=== PATIENT | male | born 1990 | race African-American/Black ===

== ENCOUNTER 2017-05-08 23:36 | Emergency (ER) | payer MEDICAID ==
[~2017-05-08] VITALS: Ht 177.8 cm; Wt 87.5 kg
[2017-05-09 02:39] LABS: GLUCOSE,POINT OF CARE 75 MG/DL (70-110)
[2017-05-09 05:19] VITALS: BP 142/89
== END 2017-05-09 05:21 | disposition home or self-care (01) ==
LOC: EMS 23:37
DX: S09.93XA Unspecified injury of face, initial encounter (principal); K21.9 Gastro-esophageal reflux disease without esophagitis; F12.90 Cannabis use, unspecified, uncomplicated; W18.01XA Striking against sports equipment with subsequent fall, initial encounter; Y93.67 Activity, basketball; Y92.89 Other specified places as the place of occurrence of the external cause; Y99.8 Other external cause status
CPT/HCPCS: 70450; 70486; 82962; 99284

== ENCOUNTER 2017-07-09 11:09 | Inpatient (IN) | payer MEDICAID ==
[~2017-07-09] VITALS: Ht 177.8 cm; Wt 75.5 kg
[2017-07-09] MEDS ORDERED: CEFTAROLINE 600 MG/D5W 250 ML IV ONE (12:15)
[2017-07-09] MEDS ORDERED: OxyCODONE HCL/ACETAMINOPHEN 5-325 MG TABLET PO ONE (12:30)
[2017-07-09 13:21] LABS: BASOPHILS % (AUTO) 0.2 % (0.0-2.0); EOSINOPHILS % (AUTO) 5.9 % (1.0-6.0); HEMATOCRIT 44.8 % (41-53); HEMOGLOBIN 15.3 g/dL (13.5-17.5); LYMPHOCYTES # (AUTO) 1.7 K/uL (1.0-4.8); LYMPHOCYTES % (AUTO) 20.7 % (22.0-44.0); MEAN CORPUSCULAR HEMOGLOBIN 31.4 pg (26.0-34.0); MEAN CORPUSCULAR HGB CONC 34.1 G/dL (31.0-37.0); MEAN CORPUSCULAR VOLUME 92 fL (80-100); MONOCYTES # (AUTO) 0.9 K/uL (0.1-1.0); NEUTROPHILS # (AUTO) 5.2 K/uL (1.8-7.7); NEUTROPHILS % (AUTO) 62.2 % (40.0-70.0); PLATELET COUNT (AUTO) 244 K/uL (150-450); RED BLOOD CELL COUNT(AUTO) 4.87 MIL/uL (4.50-5.90); RED CELL DISTRIBUTION WIDTH 13.2 % (11.5-14.5)
[2017-07-09 13:38] LABS: ANION GAP 6 mmol/L (8-16); CALCIUM, TOTAL 9.3 mg/dL (8.8-10.5); CARBON DIOXIDE 31 mmol/L (22-29); CHLORIDE 102 mmol/L (98-107); CREATININE 0.91 mg/dL (0.60-1.30); GLOMERULAR FILTR. RATE CALC > 60 mL/min (>60); GLUCOSE,RANDOM 88 mg/dL (70-110); POTASSIUM 4.5 mmol/L (3.5-5.1); SODIUM SERUM 139 mmol/L (136-145); UREA NITROGEN, BLOOD 9 mg/dL (7-18)
[2017-07-09 13:43] LABS: ALANINE AMINOTRANSFERASE 516 U/L (12-78); ALKALINE PHOSPHATASE 244 U/L (46-116); ASPARTATE AMINOTRANSFERASE 283 U/L (15-37); BILIRUBIN,TOTAL 0.8 mg/dL (0.1-1.0); TOTAL PROTEIN, SERUM 7.7 g/dL (6.4-8.2)
[2017-07-09 13:46] LABS: LACTIC ACID 0.8 mmol/L (0.4-2.0)
[2017-07-09] MEDS ORDERED: MORPHINE SULFATE 2 MG/ML SYRINGE IVP PRN (16:30)
[2017-07-09] MEDS ORDERED: ACETAMINOPHEN 325 MG TABLET PO PRN ×2 (16:30→16:45)
[2017-07-09] MEDS ORDERED: BISACODYL 10 MG RECTAL RECTAL SUPPOSITORY PR PRN (16:30)
[2017-07-09] MEDS ORDERED: ZOLPIDEM TARTRATE 5 MG TABLET PO PRN (16:30)
[2017-07-09] MEDS ORDERED: MAGNESIUM HYDROXIDE SUSPENSION 30 ML UDCUP PO PRN (16:30)
[2017-07-09] MEDS ORDERED: 0.9% SODIUM CHLORIDE 10 ML SYRINGE IVP PRN (16:45)
[2017-07-09] MEDS ORDERED: VANCOMYCIN HCL 1.5 GM in DEXTROSE 5%-WATER 250 ML IV ONE (17:00)
[2017-07-09 18:26] VITALS: BP 119/69
[2017-07-09] MEDS ORDERED: SODIUM CHLORIDE 0.9% 250 ML IV ONE (19:27)
[2017-07-09 19:52] VITALS: BP 127/74
[2017-07-09] MEDS: DOCUSATE SODIUM 100 MG CAPSULE PO SCH (23:03)
[2017-07-09] MEDS: VANCOMYCIN HCL 1.25 GM in DEXTROSE 5%-WATER 250 ML IV SCH (23:04)
[2017-07-09] MEDS: HEPARIN SODIUM,PORCINE 5,000 UNITS/ML VIAL SQ SCH (23:10)
[2017-07-10] VITALS (7 sets, daily range): BP systolic 100–134; BP diastolic 59–78
[2017-07-10 01:19] LABS: APPEARANCE,URINE CLEAR (CLEAR); BILIRUBIN,URINE NEGATIVE (NEGATIVE); GLUCOSE, URINE (UA) NEGATIVE (NEGATIVE); KETONES,URINE NEGATIVE (NEGATIVE); LEUKOCYTE ESTERASE ,URINE NEGATIVE (NEGATIVE); NITRATE,URINE NEGATIVE (NEGATIVE); OCCULT BLOOD,URINE NEGATIVE (NEGATIVE); PROTEIN,URINE NEGATIVE (NEGATIVE)
[2017-07-10 01:25] LABS: AMPHET/METH SCREEN,URINE POSITIVE (NEGATIVE); BARBITURATE SCREEN, URINE NEGATIVE (NEGATIVE); BENZODIAZEPINES SCREEN,URINE NEGATIVE (NEGATIVE); CANNABINOID SCREEN,URINE NEGATIVE (NEGATIVE); COCAINE SCREEN,URINE NEGATIVE (NEGATIVE); METHADONE SCREEN, URINE NEGATIVE (NEGATIVE); OPIATE SCREEN,URINE NEGATIVE (NEGATIVE)
[2017-07-10 01:31] LABS: PHENCYCLIDINE SCREEN,URINE NEGATIVE (NEGATIVE)
[2017-07-10 02:54] LABS: BACTERIA,URINE None Seen /HPF (None Seen); RBC,URINE None Seen /HPF (0-2); WBC,URINE None Seen /HPF (0-5)
[2017-07-10] MEDS: HYDROCODONE/ACETAMINOPHEN 5-325 MG TABLET PO PRN (04:28)
[2017-07-10] MEDS: ONDANSETRON HCL 4 MG/2 ML VIAL IVP PRN (05:12)
[2017-07-10] MEDS: VANCOMYCIN HCL 1.25 GM in DEXTROSE 5%-WATER 250 ML IV SCH ×2 (06:49→16:03)
[2017-07-10 07:13] LABS: BASOPHILS % (AUTO) 0.1 % (0.0-2.0); EOSINOPHILS % (AUTO) 3.1 % (1.0-6.0); HEMATOCRIT 47.2 % (41-53); LYMPHOCYTES # (AUTO) 0.8 K/uL (1.0-4.8); LYMPHOCYTES % (AUTO) 8.5 % (22.0-44.0); MEAN CORPUSCULAR HEMOGLOBIN 31.3 pg (26.0-34.0); MEAN CORPUSCULAR HGB CONC 33.8 G/dL (31.0-37.0); MEAN CORPUSCULAR VOLUME 93 fL (80-100); MONOCYTES # (AUTO) 0.7 K/uL (0.1-1.0); NEUTROPHILS # (AUTO) 7.8 K/uL (1.8-7.7); NEUTROPHILS % (AUTO) 81.3 % (40.0-70.0); PLATELET COUNT (AUTO) 244 K/uL (150-450); RED BLOOD CELL COUNT(AUTO) 5.09 MIL/uL (4.50-5.90); RED CELL DISTRIBUTION WIDTH 13.1 % (11.5-14.5)
[2017-07-10 07:50] LABS: ALANINE AMINOTRANSFERASE 528 U/L (12-78); ALBUMIN 3.1 g/dL (3.4-5.0); ALKALINE PHOSPHATASE 256 U/L (46-116); ANION GAP 8 mmol/L (8-16); ASPARTATE AMINOTRANSFERASE 232 U/L (15-37); BILIRUBIN,TOTAL 0.9 mg/dL (0.1-1.0); CALCIUM, TOTAL 9.6 mg/dL (8.8-10.5); CARBON DIOXIDE 28 mmol/L (22-29); CHLORIDE 99 mmol/L (98-107); CREATININE 0.89 mg/dL (0.60-1.30); GLOMERULAR FILTR. RATE CALC > 60 mL/min (>60); GLUCOSE,RANDOM 104 mg/dL (70-110); POTASSIUM 4.3 mmol/L (3.5-5.1); SODIUM SERUM 135 mmol/L (136-145); UREA NITROGEN, BLOOD 10 mg/dL (7-18)
[2017-07-10] MEDS: PANTOPRAZOLE SODIUM 40 MG DR TABLET PO SCH (08:19)
[2017-07-10] MEDS: HEPARIN SODIUM,PORCINE 5,000 UNITS/ML VIAL SQ SCH ×2 (08:19→16:03)
[2017-07-10] MEDS: DOCUSATE SODIUM 100 MG CAPSULE PO SCH ×2 (08:19→21:00)
[2017-07-10] MEDS ORDERED: GADOBUTROL 1 MMOL/ML 10 ML VIAL IVP ONE (14:40)
[2017-07-10] MEDS ORDERED: LORazepam 2 MG/ML VIAL IVP ONE (19:30)
[2017-07-11] MEDS: HEPARIN SODIUM,PORCINE 5,000 UNITS/ML VIAL SQ SCH ×5 (00:54→22:41)
[2017-07-11] MEDS: VANCOMYCIN HCL 1.25 GM in DEXTROSE 5%-WATER 250 ML IV SCH ×4 (00:54→22:41)
[2017-07-11] MEDS: ONDANSETRON HCL 4 MG/2 ML VIAL IVP PRN (01:02)
[2017-07-11 06:26] VITALS: BP 115/68
[2017-07-11 07:24] LABS: ANION GAP 4 mmol/L (8-16); CALCIUM, TOTAL 9.4 mg/dL (8.8-10.5); CARBON DIOXIDE 30 mmol/L (22-29); CHLORIDE 101 mmol/L (98-107); CREATININE 0.97 mg/dL (0.60-1.30); GLOMERULAR FILTR. RATE CALC > 60 mL/min (>60); GLUCOSE,RANDOM 100 mg/dL (70-110); POTASSIUM 4.2 mmol/L (3.5-5.1); SODIUM SERUM 135 mmol/L (136-145); UREA NITROGEN, BLOOD 11 mg/dL (7-18); VANCOMYCIN,RANDOM 20.8 mcg/mL (25.0-50.0)
[2017-07-11 08:09] VITALS: BP 102/65
[2017-07-11] MEDS: PANTOPRAZOLE SODIUM 40 MG DR TABLET PO SCH (08:20)
[2017-07-11] MEDS: DOCUSATE SODIUM 100 MG CAPSULE PO SCH ×3 (08:28→22:41)
[2017-07-11 11:35] VITALS: BP 133/65
[2017-07-11] MEDS ORDERED: INFLUENZA VIRUS VACCINE QVS 2017-18 (3YR+)/PF 60 MCG/0.5 ML SYRINGE IM ONE (13:00)
[2017-07-11 16:34] VITALS: BP 107/64
[2017-07-11 20:15] VITALS: BP 119/71
[2017-07-11 23:26] VITALS: BP 114/68
[2017-07-12 04:51] VITALS: BP 108/73
[2017-07-12] MEDS ORDERED: SODIUM CHLORIDE 0.9% 250 ML IV ONE (04:53)
[2017-07-12] MEDS: VANCOMYCIN HCL 1.25 GM in DEXTROSE 5%-WATER 250 ML IV SCH ×3 (06:49→22:33)
[2017-07-12 07:44] VITALS: BP 119/68
[2017-07-12] MEDS: HEPARIN SODIUM,PORCINE 5,000 UNITS/ML VIAL SQ SCH ×4 (08:00→23:56)
[2017-07-12] MEDS: DOCUSATE SODIUM 100 MG CAPSULE PO SCH ×2 (08:06→20:40)
[2017-07-12] MEDS: PANTOPRAZOLE SODIUM 40 MG DR TABLET PO SCH (08:06)
[2017-07-12] MEDS ORDERED: IOVERSOL 350 MG/ML 100 ML VIAL ONE (08:53)
[2017-07-12 11:38] VITALS: BP 117/65
[2017-07-12 15:50] VITALS: BP 105/64
[2017-07-12 19:56] VITALS: BP 132/67
[2017-07-12 23:50] VITALS: BP 134/67
[2017-07-13 04:53] VITALS: BP 131/63
[2017-07-13] MEDS: VANCOMYCIN HCL 1.25 GM in DEXTROSE 5%-WATER 250 ML IV SCH ×3 (06:35→23:42)
[2017-07-13 07:32] LABS: ANION GAP 1 mmol/L (8-16); CALCIUM, TOTAL 9.1 mg/dL (8.8-10.5); CARBON DIOXIDE 32 mmol/L (22-29); CHLORIDE 104 mmol/L (98-107); CREATININE 0.92 mg/dL (0.60-1.30); GLOMERULAR FILTR. RATE CALC > 60 mL/min (>60); GLUCOSE,RANDOM 92 mg/dL (70-110); SODIUM SERUM 137 mmol/L (136-145); UREA NITROGEN, BLOOD 9 mg/dL (7-18)
[2017-07-13 07:33] VITALS: BP 120/57
[2017-07-13] MEDS: HEPARIN SODIUM,PORCINE 5,000 UNITS/ML VIAL SQ SCH ×3 (08:00→23:31)
[2017-07-13] MEDS: DOCUSATE SODIUM 100 MG CAPSULE PO SCH ×2 (08:26→20:12)
[2017-07-13] MEDS: PANTOPRAZOLE SODIUM 40 MG DR TABLET PO SCH (08:27)
[2017-07-13 11:10] VITALS: BP 119/61
[2017-07-13] MEDS ORDERED: SODIUM CHLORIDE 0.9% 1,000 ML IV ONE (14:02)
[2017-07-13] MEDS ORDERED: RINGERS SOLUTION,LACTATED 1,000 ML IV ONE (14:11)
[2017-07-13 20:04] VITALS: BP 132/79
[2017-07-13] MEDS: HYDROCODONE/ACETAMINOPHEN 5-325 MG TABLET PO PRN (20:10)
[2017-07-13 23:36] VITALS: BP 105/51
[2017-07-14] MEDS ORDERED: FentaNYL CITRATE-PF 100 MCG/2 ML VIAL IVP ONE (01:28)
[2017-07-14] MEDS ORDERED: MIDAZOLAM HCL 2 MG/2 ML VIAL IVP ONE (01:28)
[2017-07-14] MEDS ORDERED: PROPOFOL 1% 20 ML VIAL IVP ONE (01:32)
[2017-07-14] MEDS ORDERED: LIDOCAINE HCL/PF 2% 5 ML VIAL INJ ONE (01:32)
[2017-07-14] MEDS ORDERED: SUCCINYLCHOLINE CHLORIDE 20 MG/ML 10 ML VIAL IVP ONE (01:32)
[2017-07-14 05:25] VITALS: BP 106/51
[2017-07-14] MEDS: VANCOMYCIN HCL 1.25 GM in DEXTROSE 5%-WATER 250 ML IV SCH ×3 (06:45→23:43)
[2017-07-14 07:33] VITALS: BP 103/62
[2017-07-14] MEDS: HYDROCODONE/ACETAMINOPHEN 5-325 MG TABLET PO PRN ×2 (07:40→20:11)
[2017-07-14] MEDS: PANTOPRAZOLE SODIUM 40 MG DR TABLET PO SCH (07:42)
[2017-07-14] MEDS: DOCUSATE SODIUM 100 MG CAPSULE PO SCH ×2 (07:42→21:00)
[2017-07-14] MEDS: HEPARIN SODIUM,PORCINE 5,000 UNITS/ML VIAL SQ SCH ×2 (07:42→16:00)
[2017-07-14 10:42] LABS: ANION GAP 4 mmol/L (8-16); CARBON DIOXIDE 31 mmol/L (22-29); CHLORIDE 103 mmol/L (98-107); CREATININE 0.97 mg/dL (0.60-1.30); GLOMERULAR FILTR. RATE CALC > 60 mL/min (>60); GLUCOSE,RANDOM 113 mg/dL (70-110); POTASSIUM 4.3 mmol/L (3.5-5.1); SODIUM SERUM 138 mmol/L (136-145); UREA NITROGEN, BLOOD 12 mg/dL (7-18)
[2017-07-14 11:33] VITALS: BP 106/61
[2017-07-14 15:36] VITALS: BP 104/56
[2017-07-14 19:30] VITALS: BP 119/62
[2017-07-14] MEDS ORDERED: SODIUM CHLORIDE 0.9% 500 ML IV ONE (23:57)
[2017-07-15 00:14] VITALS: BP 116/64
[2017-07-15 04:00] VITALS: BP 114/62
[2017-07-15 06:25] LABS: ANION GAP 4 mmol/L (8-16); CARBON DIOXIDE 30 mmol/L (22-29); CHLORIDE 104 mmol/L (98-107); CREATININE 0.98 mg/dL (0.60-1.30); GLOMERULAR FILTR. RATE CALC > 60 mL/min (>60); GLUCOSE,RANDOM 99 mg/dL (70-110); SODIUM SERUM 138 mmol/L (136-145); UREA NITROGEN, BLOOD 10 mg/dL (7-18)
[2017-07-15] MEDS: VANCOMYCIN HCL 1.25 GM in DEXTROSE 5%-WATER 250 ML IV SCH (06:47)
[2017-07-15] MEDS: HEPARIN SODIUM,PORCINE 5,000 UNITS/ML VIAL SQ SCH ×2 (07:20)
[2017-07-15] MEDS: PANTOPRAZOLE SODIUM 40 MG DR TABLET PO SCH (07:21)
[2017-07-15] MEDS: DOCUSATE SODIUM 100 MG CAPSULE PO SCH (07:21)
[2017-07-15 07:50] VITALS: BP 120/59
[2017-07-15 12:18] VITALS: BP 107/54
[2017-07-15] MEDS ORDERED: CEPH500 PO (12:28)
[2017-07-15] MEDS ORDERED: TRAM50TA4 PO (12:29)
[2017-07-15] MEDS ORDERED: BACTDSB PO (12:29)
== END 2017-07-15 13:21 | disposition home or self-care (01) | DRG 383 ==
LOC: EMS 11:10 → 6N 16:48
PROVIDERS: ADMIT Internal Medicine; ATTEND Internal Medicine
PROC: 0H9GXZZ Drainage of Left Hand Skin, External Approach (ICD-10-PCS; principal; 2017-07-09)
DX: L03.114 Cellulitis of left upper limb (principal); K74.60 Unspecified cirrhosis of liver; F25.9 Schizoaffective disorder, unspecified; K21.9 Gastro-esophageal reflux disease without esophagitis; L02.512 Cutaneous abscess of left hand; Z53.29 Procedure and treatment not carried out because of patient's decision for other reasons; F12.10 Cannabis abuse, uncomplicated
CPT/HCPCS: 73201; 80074; 83605; 87040; 87070; 87205; 96374; 99285; A9585; J0330; J0712; J1644; J2250; J2270; J2405; J2704; J3010; J3370; J3490; J7030; J7040; J7050; J7060; J7120